=== PATIENT | female | born 1970 | race Caucasian/White ===

== ENCOUNTER 2020-05-11 07:46 | Emergency (ER) | payer OTHER, BC ==
[2020-05-11 07:54] VITALS: BP 150/88; PULSE 97
[2020-05-11] MEDS ORDERED: Ondansetron 4 MG/2 ML SDV IVPUSH ONE (08:03)
[2020-05-11] MEDS ORDERED: Acetaminophen 325 MG Tab PO ONE (08:03)
--- NOTE | 2020-05-11 08:04 | EDM.PDOC ---
ED HPI GENERAL MEDICAL PROBLEM - General Chief Complaint: General Stated Complaint: [facility] Time Seen by Provider: 05/11/20 07:58 Source of Information: Reports: Patient History Limitations: Reports: No Limitations - History of Present Illness INITIAL COMMENTS - FREE TEXT/NARRATIVE: 50-year-old female presents to the ED for evaluation of injury sustained from slipping on the ice he concrete outside the [facility] this morning. She was leaving the hotel and had luggage that she was pulling when she slipped on icy surface and fell backwards. She struck the occipital aspect of her head on the concrete and she remembers bouncing once. Note loss of consciousness occurred. She complained of diffuse cervical neck pain on scene. She was aided up by other personnel from the hot and did walk back into the lobby of the hotel prior to ambulance arrival. At present has a headache with associated nausea. C-collar was placed on scene due to complaints of cervical neck pain. Patient is a known diabetic and blood sugar on scene was 134. Only other injury was to her left elbow. Onset: Today, Sudden Onset Date: 05/11/20 Onset Time: 07:30 Duration: Minutes: Location: Reports: Head, Neck, Upper Extremity, Left (Left elbow.) Quality: Reports: Ache, Other (Mild left posterior elbow). Denies: Burning Severity: Moderate (headache with associated nausea.) Improves with: Reports: None Worsens with: Reports: Movement Context: Reports: Trauma (Slipped and fell on icy surface outside [facility] this morning.). Denies: Activity, Exercise, Lifting, Sick Contact Associated Symptoms: Reports: Headaches, Loss of Appetite, Nausea/Vomiting, Weakness. 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 (see below) Headache Pain Score (Numeric/FACES): 5 - Related Data Allergies Allergy/AdvReac Type Severity Reaction Status Date / Time hydromorphone [From Dilaudid] Allergy Chest Verified 05/11/20 07:57 Tightness morphine Allergy Chest Verified 05/11/20 07:57 Tightness Sulfa (Sulfonamide Allergy Airway Verified 05/11/20 07:57 Antibiotics) Tightness Tetracyclines Allergy Anaphylactic Verified 05/11/20 07:57 Shock Home Meds: Home Meds LORazepam 0.5 mg PO ASDIRECTED PRN 02/18/17 [History] Lisinopril 20 mg PO DAILY 02/18/17 [History] metFORMIN HCl [Metformin HCl] 1,000 mg PO BIDMEALS 02/18/17 [History] Potassium Chloride 20 meq PO DAILY 02/19/17 [History] atorvaSTATin Calcium [Atorvastatin Calcium] 20 mg PO DAILY 02/19/17 [History] DULoxetine [Cymbalta] 60 mg PO DAILY 05/11/20 [History] Naltrexone 9 mg PO TID 05/11/20 [History] Ondansetron [Zofran] 4 mg BUCCAL Q6H PRN #6 tab 05/11/20 [Rx] Past Medical History Other HEENT History: wears glasses Cardiovascular History: Reports: Hypertension Respiratory History: Reports: None Gastrointestinal History: Reports: GERD Genitourinary History: Reports: None 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 Endocrine/Metabolic History: Reports: Diabetes, Type II Hematologic History: Reports: Anemia Immunologic History: Reports: None Oncologic (Cancer) History: Reports: None Dermatologic History: Reports: None - Past Surgical History Head Surgeries/Procedures: Reports: None HEENT Surgical History: Reports: Tonsillectomy Cardiovascular Surgical History: Reports: None Respiratory Surgical History: Reports: None GI Surgical History: Reports: Bariatric Procedure (Duodenal bypass ie. gastric bypass), Cholecystectomy Female Surgical History: Reports: Section (X3.) Neurological Surgical History: Reports: Laminectomy (Lumbar spine done at age 20.) Musculoskeletal Surgical History: Reports: None Oncologic Surgical History: Reports: None Social & Family History - Tobacco Use Tobacco Use Status *Q: Never Tobacco User Second Hand Smoke Exposure: No - Caffeine Use Caffeine Use: Reports: Soda - Recreational Drug Use Recreational Drug Use: No - Living Situation & Occupation Living situation: Reports: Occupation: Employed ED ROS GENERAL - Review of Systems Review Of Systems: See Below Constitutional: Reports: Malaise, Weakness, Fatigue, Decreased Appetite. Denies: Fever, Chills HEENT: Reports: Glasses Respiratory: Denies: Shortness of Breath, Wheezing, Pleuritic Chest Pain, Cough, Sputum Cardiovascular: Reports: Blood Pressure Problem, Lightheadedness (Since falling). Denies: Chest Pain, Claudication, Dyspnea on Exertion ( this morning.), Edema, Orthopnea (On lisinopril.), Palpitations Endocrine: Reports: Fatigue GI/Abdominal: Reports: Nausea (Nausea since hitting her head this morning. No vomiting) : Reports: Frequency Musculoskeletal: Reports: Neck Pain, Back Pain Skin: Reports: No Symptoms Neurological: Reports: Dizziness (At present. Only since falling this morning.), Headache. Denies: Confusion, Numbness, Pre-Existing Deficit, Seizure, Syncope, Tingling, Tremors, Trouble Speaking, Difficulty Walking, Weakness Psychiatric: Reports: Depression, Other (History of PTSD.) Hematologic/Lymphatic: Reports: No Symptoms Immunologic: Reports: No Symptoms ED EXAM, GENERAL - Physical Exam Exam: See Below Exam Limited By: No Limitations General Appearance: Alert, WD/WN, Mild Distress, Other (Temperature is 36.1 upon arrival. Heart rate 97 and regular. Respiratory to 20 with O2 sats of 94% on room air with cool extremities on palpation. BP 150/88.) Eye Exam: Bilateral Eye: Normal Inspection, PERRL Nose: Normal Inspection, Normal Mucosa Throat/Mouth: Normal Inspection, Normal Lips, Normal Oropharynx, Other (No injuries to the tongue or dentition.) Head: Atraumatic, Normocephalic, Other (Tenderness to the occipital scalp with no palpable hematomas. No open wounds or lacerations.) Neck: Other (Patient arrives in a cervical collar. She complained of diffuse lower cervical neck pain on scene. Collar will remain in place until C-spine is cleared by CT.). No: Lymphadenopathy (L), Lymphadenopathy (R) Respiratory/Chest: No Respiratory Distress, Lungs Clear, Normal Breath Sounds, No Accessory Muscle Use, Other Cardiovascular: Normal Peripheral Pulses, Regular Rate, Rhythm, No Edema, No Gallop, No Murmur (No pain on firm compression of ribs and sternum. No subcutaneous emphysema no crepitus.), No Rub Peripheral Pulses: 2+: Posterior Tibial (L), Posterior Tibial (R), Dorsalis Pedis (L), Dorsalis Pedis (R), 3+: Carotid (L), Carotid (R) GI/Abdominal: Normal Bowel Sounds, Soft, Non-Tender, No Organomegaly, No Mass, Pelvis Stable, Other (Multiple surgical scars.) Back Exam: Other (Range of motion not assessed. Patient could sit up easily with no abrasions or contusions to the thoracic or lumbar spine area. Evidence of midline laminectomy over the lumbar spine with surgical scar evident. Diffuse tenderness to midline of the lumbar spine which he states is no worse than normal.) Extremities: Other (Knees are fine she has normal internal/external rotation of both hips. She has contused the posterior aspect of her left elbow with 2 bruises now becoming apparent. Clinically no fractures with full supination pronation and flexion extension at the left elbow. No injury to the right elbow or upper extremity appreciated.) Neurological: Alert, Oriented, CN II-XII Intact, Normal Cognition, No Motor/Sensory Deficits Psychiatric: Normal Affect, Normal Mood Skin Exam: Warm, Dry, Intact, Normal Color, No Rash Course - Vital Signs Last Recorded V/S: Last Vital Signs Temp 36.1 C 05/11/20 07:53 Pulse 97 05/11/20 07:53 Resp 20 05/11/20 07:53 BP 150/88 H 05/11/20 07:53 Pulse Ox 94 L 05/11/20 07:53 - Orders/Labs/Meds Orders: Active Orders 24 hr Category Date Time Status Cervical Spine wo Cont [CT] Stat Exams 05/11/20 08:00 Taken Head wo Cont [CT] Stat Exams 05/11/20 07:58 Taken Sodium Chloride 0.9% [Normal Saline] 1,000 ml Med 05/11/20 08:15 Active IV ASDIRECTED Medication Orders Sodium Chloride (Normal Saline) 1,000 mls @ 150 mls/hr IV ASDIRECTED SHOBHA Last Admin: 05/11/20 08:26 Dose: 150 mls/hr Documented by: JUNE Meds: Medications Generic Name Dose Route Start Last Admin Trade Name Freq PRN Reason Stop Dose Admin Sodium Chloride 1,000 mls @ 150 mls/hr 05/11/20 08:15 05/11/20 08:26 Normal Saline IV 150 mls/hr ASDIRECTED SHOBHA Administration Discontinued Medications Generic Name Dose Route Start Last Admin Trade Name Freq PRN Reason Stop Dose Admin Acetaminophen 975 mg 05/11/20 08:03 05/11/20 08:25 Tylenol PO 05/11/20 08:04 975 mg ONETIME ONE Administration Ondansetron HCl 4 mg 05/11/20 08:03 05/11/20 08:25 Zofran IVPUSH 05/11/20 08:04 4 mg ONETIME ONE Administration - Radiology Interpretation Free Text/Narrative:: 50-year-old female presents to the ED per [facility] after slipping and falling on the ice outside of the [facility] where she was staying overnight. As she was leaving the [facility] this morning pulling her luggage she slipped on ice and fell backward striking her occipital head on the ic sidewalk. This did throw her glasses off her face. She was aided up by bystanders. She was dated back into the lobby of the [facility] where the paramedics were summoned. She was complaining of neck pain on scene in a c-collar was placed. Only other injuries on examination of to the left posterior elbow. No palpable deformities of the head appreciated. No open wounds. No injuries to the lower extremities or back appreciated. She has nauseated at present with a headache. Plan IV normal saline 150 mils per hour. Zofran 4 mg IV. Tylenol 9 7 5 mg p.o. for headache relief as patient has had several adverse reactions to narcotics. She will have CT of her head and neck performed. - Re-Assessments/Exams Free Text/Narrative Re-Assessment/Exam: 05/11/20 09:OO: CT of the head reveals no intracranial hemorrhage or mass- effect. There are no skull fractures. There is a mild soft tissue hematoma left inferior occipital scalp.. CT of the cervical spine reveals early degenerative changes of the atlantoaxial level particularly tween the arch of C1 and the dens. There is diffuse degenerative change from C5-C7 vertebra with degenerative disc disease at the C5-C6 and C6-C7 levels. Posterior osteophytes present. No sign of spinal cord compression. No severe spinal canal stenosis identified. C-collar was removed. Patient has fairly good range of motion of her cervical spine at this time. She has no further nausea. She will therefore be discharged to home. Note given to excuse from the workplace today. Her we coming down from [place] to pick her up. She will continue Tylenol as needed for headache relief over the weekend. At this time no convincing evidence of concussion evident. Departure - Departure Time of Disposition: 09:01 Disposition: Home, Self-Care 01 Condition: Fair Clinical Impression: Contusion of scalp, initial encounter, Contusion of left elbow, initial encounter Closed head injury Qualifiers: Encounter type: initial encounter Qualified Code(s): S09.90XA - Unspecified injury of head, initial encounter Sprain of cervical neck Qualifiers: Encounter type: initial encounter Qualified Code(s): S13.9XXA - Sprain of joints and ligaments of unspecified parts of neck, initial encounter - Discharge Information *PRESCRIPTION DRUG MONITORING PROGRAM REVIEWED*: Not Applicable *COPY OF PRESCRIPTION DRUG MONITORING REPORT IN PATIENT KATY: Not Applicable Prescriptions: Ondansetron [Zofran] 4 mg BUCCAL Q6H PRN #6 tab PRN Reason: nausea or vomiting Referrals: PCP,None [Ordering Only Provider] - Forms: ED Department Discharge, ED Return to Work/School Form Additional Instructions: Evaluation in the emergency room this morning in regards to slipping and falling on the ice this morning outside of your hotel . This resulted in a closed head injury with contusion to the left occipital aspect of your scalp with slight swelling appreciated on CT exam in this area. 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 CT scan of the neck done in the ED reveals advanced degenerative arthritic changes at cervical 5-6 level and at C6-C7 levels. No broken bones were identified. Expect increase stiffness and soreness to develop in the neck over the next 24 to 48 hours due to strain of the surrounding muscles and ligaments around the neck bones. Suggest low-level activity for the next 2 to 3 days. No clinical evidence of a significant concussion. CT of the brain is normal. I can see mild soft tissue swelling at the base of your left occipital scalp or back of your head. Obvious contusions of the elbow appreciated with early bruising. Off work today. You did receive Zofran intravenously in the ED and Tylenol for pain. Continue Tylenol 650 mg every 4-6 hours needed for headache relief. Prescription prescription has been written for Zofran to be taken under the tongue every 6 hours as needed for relief of any nausea. Follow-up with personal care physician if headache intensifies over the next 72 hours. If your neck remains stiff and sore past 10 days you need follow-up in the clinic as well for physiotherapy treatment. Sepsis Event Note (ED) - Evaluation Sepsis Screening Result: No Definite Risk - Focused Exam Vital Signs: Vital Signs Temp Pulse Resp BP Pulse Ox 05/11/20 07:53 36.1 C 97 20 150/88 H 94 L - My Orders Last 24 Hours: My Active Orders 05/11/20 07:58 Head wo Cont [CT] Stat 05/11/20 08:00 Cervical Spine wo Cont [CT] Stat 05/11/20 08:15 Sodium Chloride 0.9% [Normal Saline] 1,000 ml IV ASDIRECTED - Assessment/Plan Last 24 Hours: My Active Orders 05/11/20 07:58 Head wo Cont [CT] Stat 05/11/20 08:00 Cervical Spine wo Cont [CT] Stat 05/11/20 08:15 Sodium Chloride 0.9% [Normal Saline] 1,000 ml IV ASDIRECTED
[2020-05-11] MEDS ORDERED: Sodium Chloride 0.9% 1,000 ML IV SCH (08:15)
--- NOTE | 2020-05-11 09:39 | CT ---
PROCEDURE INFORMATION: Exam: CT Head Without Contrast Exam date and time: 05/11/2020 8:02 AM Age: 50 years old Clinical indication: Pain and injury or trauma; Fall; Concussion/head injury; Without loss of consciousness; Injury date: 05/11/20; Injury details: Slipped and fell on the ice this morning; Hit occipital on concrete and has diffuse cervical neck pain; No loc TECHNIQUE: Imaging protocol: Computed tomography of the head without contrast. Radiation optimization: All CT scans at this facility use at least one of these dose optimization techniques: automated exposure control; mA and/or kV adjustment per patient size (includes targeted exams where dose is matched to clinical indication); or iterative reconstruction. COMPARISON: No relevant prior studies available. FINDINGS: Brain: Normal. No hemorrhage. Unremarkable white matter. No mass effect. Cerebral ventricles: No ventriculomegaly. Bones/joints: Unremarkable. No acute fracture. Paranasal sinuses: Visualized sinuses are unremarkable. No fluid levels. Mastoid air cells: Visualized mastoid air cells are well aerated. Vasculature: Atheromatous calcifications of the cavernous carotid arteries. Soft tissues: Unremarkable. IMPRESSION: No acute findings. Thank you for allowing us to participate in the care of your patient. Dictated and Authenticated by: Kim Bailey MD 05/11/2020 9:37 AM Central Time ([place] & Per) [facility] HEALTHJeimy
--- NOTE | 2020-05-11 09:46 | CT ---
"PROCEDURE INFORMATION: Exam: CT Cervical Spine Without Contrast Exam date and time: 05/11/2020 8:02 AM Age: 50 years old Clinical indication: Pain and injury or trauma; Fall; Concussion/head injury; Cervicalgia and neck pain; Injury date: 05/11/20; Injury details: Slipped and fell on the ice this morning and hit her head on concrete; Complained of cervical neck pain on scene TECHNIQUE: Imaging protocol: Computed tomography images of the cervical spine without contrast. Radiation optimization: All CT scans at this facility use at least one of these dose optimization techniques: automated exposure control; mA and/or kV adjustment per patient size (includes targeted exams where dose is matched to clinical indication); or iterative reconstruction. COMPARISON: No relevant prior studies available. FINDINGS: Vertebrae: No fracture identified. The vertebral bodies are height. C1-C2: Mild degenerate arthritis between the anterior arch of C1 and the odontoid. C2-C3: No significant disc protrusion. No severe spinal canal stenosis. No significant neural foraminal narrowing. C3-C4: No significant disc protrusion. No severe spinal canal stenosis. No significant neural foraminal narrowing. C4-C5: No significant disc protrusion. No severe spinal canal stenosis. No significant neural foraminal narrowing. C5-C6: Degenerative disc disease at C5-C6 loss of disc height mild disc bulge and circumferential osteophyte formation. Degenerative irregularity at the interspace. Mild central canal narrowing and at least mild foraminal at C5-C6. C6-C7: Degenerate disc disease at C6-C7 with marked loss of disc height disc bulging and circumferential osteophyte formation. Degenerative irregularity the C6 interspace. Mild central narrowing. Mild facet arthropathy. C7-T1: No significant disc protrusion. No severe spinal canal stenosis. No significant neural foraminal narrowing. BRITNEY BARNARDLY | Final Radiology Report CONFIDENTIALITY STATEMENT This report is intended only for use by the referring physician, and only in accordance with law. If you received this in error, call [phone]. Page 2 of 2 Soft tissues: Slight subcutaneous edema adjacent to left posterior occiput and upper neck. Vasculature: Atheromatous calcification of bilateral carotid arteries at the bifurcation. Lungs: Lung apices are normal. IMPRESSION: 1. Slight subcutaneous edema adjacent to left posterior occiput and upper neck. 2. No fracture identified. 3. Advanced degenerative disc disease at C5-C6 and C6-C7 with mild central canal narrowing 4. At least mild bilateral foraminal narrowing at C5-C6. Thank you for allowing us to participate in the care of your patient. Dictated and Authenticated by: Kim Bailey MD 05/11/2020 9:43 AM Central Time ([place] & Per) [facility]"
== END 2020-05-11 09:25 | disposition home or self-care (01) ==
LOC: JD.ED 07:46
DX: S06.9X9A Unspecified intracranial injury with loss of consciousness of unspecified duration, initial encounter (principal); S13.4XXA Sprain of ligaments of cervical spine, initial encounter; S00.03XA Contusion of scalp, initial encounter; S50.02XA Contusion of left elbow, initial encounter; I10 Essential (primary) hypertension; E11.42 Type 2 diabetes mellitus with diabetic polyneuropathy; F41.9 Anxiety disorder, unspecified; F32.9 Major depressive disorder, single episode, unspecified; Z88.5 Allergy status to narcotic agent; Z88.2 Allergy status to sulfonamides; Z88.1 Allergy status to other antibiotic agents; Z90.49 Acquired absence of other specified parts of digestive tract; Z79.84 Long term (current) use of oral hypoglycemic drugs; Z79.899 Other long term (current) drug therapy; W00.0XXA Fall on same level due to ice and snow, initial encounter
CPT/HCPCS: 70450; 72125; 96374; 99284; A9270; J2405; J7030